=== PATIENT | female | born 1970 | race Caucasian/White ===

== ENCOUNTER 2017-10-09 07:28 | Day surgery (SDC) | payer OTHER ==
[~2017-10-09 07:28] MED LIST: CEFAZOLIN 1 GM INJ
[2017-10-09 08:29] LABS: ADD MAN DIFF? NO
[2017-10-09 08:35] LABS: WHITE BLOOD COUNT 6.9 10^3/ul (4.8-10.8)
[2017-10-09 08:35] LABS: BASOPHILS % 0.3 % (0.0-2.0); EOSINOPHILS # 0.1 10^3/ul (0.0-0.5); EOSINOPHILS % 1.5 % (0.0-7.0); HEMATOCRIT 39.2 % (37.0-47.0); LYMPHOCYTES # 1.5 10^3/ul (0.8-2.9); LYMPHOCYTES % 22.4 % (15.0-51.0); MEAN CORPUSCULAR HEMOGLOBIN 28.1 pg (29.0-33.0); MEAN CORPUSCULAR HGB CONC 33.2 g/dl (32.0-37.0); MEAN CORPUSCULAR VOLUME 84.7 fl (82.0-101.0); MEAN PLATELET VOLUME 9.8 fl (7.4-10.4); MONOCYTE # 0.5 10^3/ul (0.3-0.9); MONOCYTES % 6.7 % (0.0-11.0); NEUTROPHIL # 4.8 10^3/ul (1.6-7.5); PLATELET COUNT 264 10^3/UL (140-415); RED BLOOD COUNT 4.63 10^6/ul (4.20-5.40); RED CELL DISTRIBUTION WIDTH 12.7 % (11.5-14.5)
[2017-10-09 08:49] LABS: INR 0.92; PROTIME 12.4 Sec (11.9-14.9)
[2017-10-09 08:50] LABS: PARTIAL THROMBOPLASTIN TIME 28.1 Sec (25.0-35.0)
[2017-10-09 08:51] LABS: ALANINE AMINOTRANSFERASE 40 IU/L (13-69); ALBUMIN 4.1 g/dl (3.3-4.9); ALBUMIN/GLOBULIN RATIO 1.17; ALKALINE PHOSPHATASE 65 IU/L (42-121); ANION GAP 12 (8-16); ASPARTATE AMINO TRANSFERASE 23 IU/L (15-46); BLOOD UREA NITROGEN 18 mg/dl (7-20); CALCIUM 9.4 mg/dl (8.4-10.2); CARBON DIOXIDE 25 mmol/L (21-31); CHLORIDE 107 mmol/L (97-110); CREATININE 0.62 mg/dl (0.44-1.00); GLUCOSE 114 mg/dl (70-220); SODIUM 140 mmol/L (135-144); TOTAL PROTEIN 7.6 g/dl (6.1-8.1)
[2017-10-09] MEDS ORDERED: LIDOCAINE 1% (MDV) 20 ML INJ (10:18)
[2017-10-09] MEDS ORDERED: ONDANSETRON 4 MG INJ ×2 (10:18→11:33)
[2017-10-09] MEDS ORDERED: MIDAZOLAM 1 MG/ML 2 ML INJ ×2 (10:18→10:39)
[2017-10-09] MEDS ORDERED: FENTAnyl 50 MCG/ML VIAL ×2 (10:18→10:39)
[2017-10-09] MEDS ORDERED: PROPOFOL 20 ML ×2 (10:18→11:55)
[2017-10-09] MEDS ORDERED: DEXAMETHASONE 4 MG/ML 1 ML INJ ×2 (10:18→11:33)
[2017-10-09] MEDS ORDERED: FAMOTIDINE 20 MG INJ ×2 (10:18→11:33)
[2017-10-09] MEDS ORDERED: PROPOFOL 40 ML (10:39)
[2017-10-09] MEDS ORDERED: METOCLOPRAMIDE 10 MG INJ (11:33)
[2017-10-09] MEDS ORDERED: KETOROLAC 30 MG INJ (11:33)
[2017-10-09] MEDS ORDERED: LABETALOL HCL 20MG INJ IV (12:30)
[2017-10-09] MEDS ORDERED: ONDANSETRON 4 MG INJ IV (12:30)
[2017-10-09] MEDS ORDERED: morphine (1 MG/ML) 10ML SYRINGE IV ×3 (12:30)
[2017-10-09] MEDS ORDERED: DIPHENHYDRAMINE 50 MG INJ IV (12:30)
[2017-10-09] MEDS ORDERED: FENTAnyl 50 MCG/ML VIAL IV ×3 (12:30)
[2017-10-09] MEDS ORDERED: MEPERIDINE 25 MG INJ IV (12:30)
[2017-10-09] MEDS ORDERED: EPHEDrine SULFATE 50 MG/5 ML SYG IV (12:30)
[2017-10-09] MEDS ORDERED: HYDROmorphONE (0.2 MG/ML) 10ML SYG IV ×3 (12:30)
[2017-10-09] MEDS ORDERED: METOCLOPRAMIDE 10 MG INJ IV (12:30)
[2017-10-09] MEDS ORDERED: OXYCODONE/ACETAMINOPHEN (5/325) TAB PO (12:30)
== END 2017-10-09 14:00 | disposition home or self-care (01) ==
LOC: SDS 07:28
DX: N93.9 Abnormal uterine and vaginal bleeding, unspecified (principal); Z85.3 Personal history of malignant neoplasm of breast
CPT/HCPCS: 58120; 80053; 85025; 85610; 85730; 88305